=== PATIENT | female | born 1965 | race Caucasian/White ===

== ENCOUNTER 2024-07-13 14:41 | Outpatient (AMB) | payer OTHER, SELFPAY ==
--- NOTE | 2024-07-13 14:56 | A.OFFPC_ITS ---
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 ?? Prior PCP:? No PCP in 5 yrs Last office visit/CPE:? 5 yrs Acute issue(s):? Est care ?? PMHx:? Hep C exposure and was treated. SurgHx:?None FHx:? Brother: Blood Clotting disorder. SocHx:? Came to [place] in 2000. Nonsmoker, EtOH None. No drugs HPI Comments History of Present Illness Details Documentation assistance for Luke Castillo MD, was provided by Rubio Webber,? Carpenter Helper Hardwood Flooring on 07/13/2024 at 3:53 PM EST. I, Dr. Castillo, have read, observed, and verified documentation. ?? PFSH Family History Brother Clotting disorder Social History Housing: House Patient Tobacco Use Status: Never used Tobacco e-Cigarette/Vaping Use: Never Used Second Hand Smoke Exposure: No service: No Current occupational status: unemployed Current occupational exposures/hazards: No Cognitive needs: No Hearing needs: No Vision needs: Yes Questionnaire PHQ-9 Over the last 2 weeks, how often have you been bothered by any of the following problems? 1. Little interest or pleasure in doing things: not at all 2. Feeling down, depressed, or hopeless: not at all 3. Trouble falling or staying asleep, or sleeping too much: not at all 4. Feeling tired or having little energy: not at all 5. Poor appetite or overeating: not at all 6. Feeling bad about yourself - or that you are a failure or have let yourself or your family down: not at all 7. Trouble concentrating on things, such as reading the newspaper or watching television: not at all 8. Moving or speaking so slowly that other people could have noticed. Or the opposite - being so fidgety or restless that you have been moving around a lot more than usual: not at all 9. Thoughts that you would be better off or of hurting yourself in some way: not at all Total score: 0 Depression Screening Interpretation: Negative Depression Screening Done: Yes 42582 - PHQ-9 Billing: Yes Source: Developed by Drs. Santy Lyles, Lupe Champion, Michael Gallegos and colleagues, with an educational katy from [employer]. Thrive Questionnaire Date Thrive assessed: 07/13/24 I am a: Patient What is your living situation today?: I have a steady place to live Within the past 12 months, did the food you bought not last and you didn't have the money to get more?: Never true Within the past 12 months, did you worry whether your food would run out before you got money to buy more?: Never true Do you have trouble paying for medicines?: No Do you have trouble getting transportation to medical appointments?: No Do you have trouble paying your heating and electricity bill?: No Do you have trouble taking care of your child, family member or friend?: No Do you have trouble with day-to-day activities such as bathing, preparing meals, shopping, managing finances, etc.?: No Are you currently unemployed and looking for a job?: No Are you interested in more education?: I choose not to answer this question Please select the resources that you would like help with: None Currently or been in a relationship where the following occur: I choose not to answer THRIVE Score: 0 AUDIT C Alcohol Use Questionnaire (AUDIT-C) 1. How often do you have a drink containing alcohol?: Never 3. How often do you have six or more drinks on one occasion?: Never Total Score: 0 Score Reviewed/Action Taken: Yes JUDY-7 AMB Questionnaire JUDY-7 Date JUDY - 7 assessed: 07/13/24 Feeling nervous, anxious, or on edge: 0 = Not at all Not being able to stop or control worryin = Not at all Worrying too much about different things: 0 = Not at all Trouble relaxin = Not at all Being so restless that it is hard to sit still: 0 = Not at all Becoming easily annoyed or irritable: 0 = Not at all Feeling afraid as if something awful might happen: 0 = Not at all Total JUDY-7 score (0-4 normal; 5-9 mild; 10-14 moderate; 15-21 severe): 0 Source: Developed by Drs. Santy Lyles, Lupe Champion, Michael Gallegos and colleagues, with an educational katy from [employer]. JUDY-7 Assessment Billing JUDY-7 Assessment Tool: JUDY-7 Assessment 98590 Review of Systems Const Denies chills, Denies fatigue, Denies fever(s), Denies headache(s) and Denies weakness ENT Denies dizziness and Denies headache(s) Card Denies chest pain, Denies lightheadedness, Denies dyspnea and Denies other (Palpitations) Resp Denies cough, Denies dyspnea, Denies wheezing and Denies other ( shortness of breath) Musc Denies numbness and Denies tingling Neuro Denies dizziness, Denies headache(s), Denies numbness, Denies tingling, Denies paresthesias and Denies weakness Psych Denies anxiety and Denies depression Endo Denies fatigue Aller/Immun Denies wheezing Physical exam (Primary Care) Vital Signs: Last Vital Signs Temp 97.7 F 07/13/24 14:59 Pulse 83 07/13/24 14:59 Resp 4 L 07/13/24 14:59 BP 120/80 07/13/24 14:59 Pulse Ox 99 07/13/24 14:59 Oxygen Delivery Method Room Air 07/13/24 14:59 BMI result Body Mass Index 31.6 Tobacco/Smoking Status: Tobacco use Status Tobacco use date assessed 07/13/24 07/13/24 15:08 Patient Tobacco Use Status Never used Tobacco 07/13/24 15:08 e-Cigarette/Vaping Use Never Used 07/13/24 15:08 PHQ-9: PHQ-9 Score PHQ-9: Total score 0 07/13/24 15:41 Depression Screening Interpretation: Negative Thrive Assessment: Date of Thrive Assessment Date Thrive assessed 07/13/24 07/13/24 15:08 Currently or been in a relationship where the following occur: I choose not to answer Const General: no acute distress and well developed Nutritional Appearance: well nourished Orientation/consciousness: patient oriented x3 HENMT Head: Yes normocephalic and Yes atraumatic Eyes General: appearance normal, both eyes and all related structures Pupils: Equal, round and reactive pupils present EOM: EOMs intact bilaterally Resp Effort & Inspection: normal respiratory effort Auscultation: clear to auscultation bilaterally Cardio Rate: regular rate Rhythm: regular rhythm Heart sounds: S1 normal heart sound present, S2 normal heart sound present, no gallops, no murmurs and no rubs Neuro General: patient oriented x3 and gait normal Cranial nerves: Yes Equal, round and reactive pupils present Psych Affect: normal affect Coding Level of Care Code New Pt Level 3 (94679) Diagnoses Exposure to hepatitis C Z20.5 Raynauds phenomenon I73.00 Breast cancer screening by mammogram Z12.31 Screening for colon cancer Z12.11 Screening for cervical cancer Z12.4 Laboratory exam ordered as part of routine general medical examination Z00.00 Additional Codes JUDY-7 Assessment Billing - JUDY-7 Assessment Tool: JUDY-7 Assessment 36767 ([id number]) PHQ-9 - 17207 - PHQ-9 Billing: Yes ([id number]) Assessment & Plan Assessment & Plan (1) Exposure to hepatitis C: Code(s): Z20.5 - Contact with and (suspected) exposure to viral hepatitis Category: Medical Plan: Patient?describes?history?hep?C?exposure?and?infection?with?ribavirin?and?interf tasia?treatment?in?2000 Patient?says?she?has?had?numerous?a?testing?since?then?showing?no?viral?load. Checking?this?again?with?her?initial?labs. (2) Raynauds phenomenon: Code(s): I73.00 - Raynaud's syndrome without gangrene Category: Medical Plan: Mild?Raynaud's?phenomenon Keep?hands?and?feet?warm (3) Breast cancer screening by mammogram: Code(s): Z12.31 - Encounter for screening mammogram for malignant neoplasm of breast Category: Medical Plan: Mammogram?ordered (4) Screening for colon cancer: Code(s): Z12.11 - Encounter for screening for malignant neoplasm of colon Category: Medical Plan: Refer?to?Gastroenterology (5) Screening for cervical cancer: Code(s): Z12.4 - Encounter for screening for malignant neoplasm of cervix Category: Medical Plan: Referred?to obstetrics gyn (6) Laboratory exam ordered as part of routine general medical examination: Code(s): Z00.00 - Encounter for general adult medical examination without abnormal findings Category: Medical Plan: Check?labs Orders: Orders Comprehensive [place]. Panel Fast Today Z00.00 - Encounter for general adult medical examination without abnormal findings Complete Blood Count Auto Diff Today Z00.00 - Encounter for general adult medical examination without abnormal findings Lipid Panel Today Z00.00 - Encounter for general adult medical examination without abnormal findings T Spot TB Today Z11.1 - Encounter for screening for respiratory tuberculosis TSH reflex Free T4 Today Z00.00 - Encounter for general adult medical examination without abnormal findings UA and rflx microscopic Today Z00.00 - Encounter for general adult medical examination without abnormal findings Hepatitis C Viral Load Today Z20.5 - Contact with and (suspected) exposure to viral hepatitis Hepatitis B,C Profile Today Z11.3 - Encounter for screening for infections with a predominantly sexual mode of transmission Microalbumin, Random (w Creat) Today I10 - Essential (primary) hypertension MM tomosynthesis screening BI Today Z12.31 - Encounter for screening mammogram for malignant neoplasm of breast Referrals PLANT PRODUCTION MANAGER Referral Z12.4 - Encounter for screening for malignant neoplasm of cervix Gastroenterology Referral Z12.11 - Encounter for screening for malignant neoplasm of colon
[2024-07-13 14:59] VITALS: BP 120/80; PULSE 83; RESP 4; TEMP 36.5; O2SAT 99; BMI 31.6
== END 2024-07-13 17:08 | disposition home or self-care (01) ==
LOC: HO.HMCFM 14:42
PROVIDERS: PCP Family Medicine; Visit Provider Family Medicine
DX: Z20.5 Contact with and (suspected) exposure to viral hepatitis (principal); I73.00 Raynaud's syndrome without gangrene; Z12.31 Encounter for screening mammogram for malignant neoplasm of breast; Z12.11 Encounter for screening for malignant neoplasm of colon; Z12.4 Encounter for screening for malignant neoplasm of cervix; Z00.00 Encounter for general adult medical examination without abnormal findings

== ENCOUNTER → 2024-07-13 14:41 | Outpatient (BNVA) | payer OTHER, SELFPAY | PROVIDERS: PCP Family Medicine; Visit Provider Family Medicine ==

== ENCOUNTER 2024-07-13 15:59 | Outpatient (REF) | payer OTHER, SELFPAY ==
[2024-07-13 18:06] LABS: MANUAL DIFF FLAG NO
[2024-07-13 18:26] LABS: Basophils Percent Auto 0.7 % (0-2); Eosinophils Absolute Auto 0.1 X10*3/uL (0.0-0.4); Eosinophils Percent Auto 2.6 % (0-4); Hematocrit 39.6 % (37.0-47.0); Hemoglobin 13.1 g/dl (12.0-16.0); Imm Gran Abs Auto 0.01 X10*3/uL (0.00-0.03); Imm Gran Pct Auto 0.2 % (0.0-0.4); Lymphocytes Absolute Auto 1.4 X10*3/uL (1.2-4.9); Lymphocytes Percent Auto 31.8 % (20-40); Mean Corpuscular HGB Conc 33.1 g/dl (31.0-35.0); Mean Corpuscular Volume 87.6 fL (80.0-98.0); Mean Platelet Volume 12.3 fL (9.4-12.3); Monocytes Absolute Auto 0.4 X10*3/uL (0.1-1.2); Monocytes Percent Auto 9.5 % (2-11); Neutrophils Absolute Auto 2.4 x10*3/uL (2.0-8.3); Neutrophils Percent Auto 55.2 % (45-73); Platelet Count 159 X10*3/uL (160-400); Red Blood Count 4.52 X10*6/uL (4.20-5.50); Red Cell Distribution Width 13.5 % (11.0-16.0); White Blood Count 4.3 X10*3/uL (4.8-10.8)
[2024-07-13 18:34] LABS: Appearance Urine Clear; Color Urine Yellow; Glucose Urine UA Negative (Negative); Leukocyte Esterase Urine Negative (Negative); Nitrite Urine Negative (Negative); PH 5.5 (5.0-9.0); Urine Blood Negative (Negative); Urine Ketones Negative (Negative); Urine Protein Negative (Neg-Trace)
[2024-07-13 18:58] LABS: Creatinine Urine 155.51 mg/dL; Microalbum/Creatinine Ratio Ur 5.1 ug/mg cr (<30)
[2024-07-13 19:05] LABS: Alanine Aminotransferase 25 U/L (0-31); Albumin Level 4.5 g/dL (3.5-5.0); Alkaline Phosphatase 66 U/L (39-117); Anion Gap 10 (12-20); Aspartate Amino Transferase 21 U/L (5-31); Bilirubin Total 0.6 mg/dL (0.0-1.0); Blood Urea Nitrogen 12 mg/dL (9-16); Calcium 9.8 mg/dL (8.4-10.2); Carbon Dioxide 26 mmol/L (22-29); Chloride 109 mmol/L (96-108); Cholesterol 238 mg/dL (<200); Estimated Glomerular Filt Rate > 60; Glucose Fasting 89 mg/dL (60-99); HDL Cholesterol 65 mg/dL (>40); LDL Cholesterol Calculated 160 mg/dL (<100); Potassium 4.4 mmol/L (3.3-5.1); Sodium 141 mmol/L (135-145); Total Protein 8.7 g/dL (6.5-8.0); Triglycerides 66 mg/dL (<150)
[2024-07-13 19:20] LABS: TSH reflex Free T4 1.06 uIU/mL (0.32-4.0)
[2024-07-14 04:22] LABS: HBS Num1 0.92 mIU/mL (0-7.99); HBc Num1 0.05 S/CO (0.00-0.79); HBsAGNum1 0.24 S/CO (0.00-0.99); Hepatitis B Core Antibody Nonreactive (Nonreactive); Hepatitis B Surface Antigen Negative (Negative); ~HepC Num1 4.13 S/CO (0.00-0.79); ~Hepatitis B Surface Antibody NONREACTIVE (Nonreactive); ~Hepatitis C Antibody Reactive (Nonreactive)
[2024-07-14 17:14] LABS: HCV Log PCR <1.18 NOT DETECTED Log IU/mL (NOT DETECTED); HepC Viral Load <15 NOT DETECTED IU/mL (NOT DETECTED)
[2024-07-15 21:19] LABS: TS Negative Control Passed; TS Panel A 0; TS Panel B 0; TS Positive Control Passed; TSpotTB Negative (Negative)
== END 2024-07-13 16:00 | disposition home or self-care (01) ==
LOC: HO.WFDLDS 15:59
PROVIDERS: Visit Provider Family Medicine
DX: I10 Essential (primary) hypertension (principal); I73.00 Raynaud's syndrome without gangrene; Z20.5 Contact with and (suspected) exposure to viral hepatitis; Z11.1 Encounter for screening for respiratory tuberculosis; Z11.3 Encounter for screening for infections with a predominantly sexual mode of transmission; Z00.00 Encounter for general adult medical examination without abnormal findings
CPT/HCPCS: 36415; 80053; 80061; 81003; 82043; 82570; 84443; 85025; 86481; 86704; 86706; 86803; 87340; 87522; 96127

== ENCOUNTER 2024-08-30 09:31 | Outpatient (AMB) | payer OTHER, SELFPAY ==
--- NOTE | 2024-08-30 09:40 | MHC.PC.OV ---
Vital Signs 08/30/24 09:42 Height 5 ft 1.42 in Weight 167 lb 6 oz BMI 31.2 BP 120/64 Blood Pressure Location Lt brachial Position Sitting Respiration 16 Pulse 84 Pulse Source Pulse Oximeter Temp 97.8 F Temp Source Oral Pulse Oximetry (%) 97 Oxygen Delivery Method Room Air Intake Visit Reasons: lab work follow up Allergies No Known Allergies Allergy (Verified 07/13/24 15:03) Medication List - Last Reconciled 08/30/24 by Luke Castillo MD No Known Home Meds Tobacco use date assessed: 07/13/24 Dental Screening Dental Screen Date: 07/13/24 HPI lab work follow up HPI Details 58 y/o female presents to f/u labs. Labs drawn 07/13/24. Reviewed labs with pt. Exposure to Hep C. Triglycerides 66. TC 238. LDL 160. HDL 65. HPI Comments History of Present Illness Details Documentation assistance for Luke Castillo MD, was provided by Rubio Webber,? Graphic User Interface Designer on 08/30/2024 at 10:07 AM PADMINI. I, Dr. Castillo, have read, observed, and verified documentation. ?? PFSH Family History Brother Clotting disorder Social History Housing: House Patient Tobacco Use Status: Never used Tobacco e-Cigarette/Vaping Use: Never Used Second Hand Smoke Exposure: No service: No Current occupational status: unemployed Current occupational exposures/hazards: No Cognitive needs: No Hearing needs: No Vision needs: Yes Questionnaire Thrive Questionnaire Date Thrive assessed: 07/10/24 I am a: Patient What is your living situation today?: I have a steady place to live Within the past 12 months, did the food you bought not last and you didn't have the money to get more?: Never true Within the past 12 months, did you worry whether your food would run out before you got money to buy more?: Never true Do you have trouble paying for medicines?: No Do you have trouble getting transportation to medical appointments?: No Do you have trouble paying your heating and electricity bill?: No Do you have trouble taking care of your child, family member or friend?: No Do you have trouble with day-to-day activities such as bathing, preparing meals, shopping, managing finances, etc.?: No Are you currently unemployed and looking for a job?: No Are you interested in more education?: I choose not to answer this question Please select the resources that you would like help with: None Currently or been in a relationship where the following occur: I choose not to answer THRIVE Score: 0 JUDY-7 AMB Questionnaire JUDY-7 Date JUDY - 7 assessed: 07/13/24 Source: Developed by Drs. Santy Lyles, Lupe Champion, Michael Gallegos and colleagues, with an educational katy from [employer]. Review of Systems Const Denies chills, Denies fatigue, Denies fever(s), Denies headache(s) and Denies weakness ENT Denies dizziness and Denies headache(s) Card Denies dyspnea Resp Denies cough, Denies dyspnea, Denies wheezing and Denies other (shortness of breath) Musc Denies numbness and Denies tingling Neuro Denies dizziness, Denies headache(s), Denies numbness, Denies tingling and Denies weakness Psych Denies anxiety and Denies depression Endo Denies fatigue Aller/Immun Denies wheezing Physical exam (Primary Care) Vital Signs: Last Vital Signs Temp 97.8 F 08/30/24 09:42 Pulse 84 08/30/24 09:42 Resp 16 08/30/24 09:42 BP 120/64 08/30/24 09:42 Pulse Ox 97 08/30/24 09:42 Oxygen Delivery Method Room Air 08/30/24 09:42 BMI result Body Mass Index 31.2 Tobacco/Smoking Status: Tobacco use Status Tobacco use date assessed 07/13/24 08/30/24 09:41 Patient Tobacco Use Status Never used Tobacco 08/30/24 09:41 e-Cigarette/Vaping Use Never Used 08/30/24 09:41 Thrive Assessment: Date of Thrive Assessment Date Thrive assessed 07/10/24 08/30/24 09:41 Currently or been in a relationship where the following occur: I choose not to answer Const General: well developed; No acute distress Nutritional Appearance: well nourished Orientation/consciousness: patient oriented x3 HENMT Head: Yes normocephalic and Yes atraumatic Eyes General: appearance normal, both eyes and all related structures Pupils: Equal, round and reactive pupils present EOM: EOMs intact bilaterally Resp Effort & Inspection: normal respiratory effort Auscultation: clear to auscultation bilaterally Cardio Rate: regular rate Rhythm: regular rhythm Heart sounds: S1 normal heart sound present, S2 normal heart sound present, no gallops, no murmurs and no rubs Neuro General: patient oriented x3 and gait normal Cranial nerves: Yes Equal, round and reactive pupils present Psych Affect: normal affect Coding Level of Care Code Est Pt Level 3 (89073) Diagnoses Exposure to hepatitis C Z20.5 Hyperlipidemia E78.5 Assessment & Plan Assessment & Plan (1) Exposure to hepatitis C: Code(s): Z20.5 - Contact with and (suspected) exposure to viral hepatitis Category: Medical Plan: History?of?hepatitis?C?infection?and?treatment. Positive?antibodies?but?viral?load?is?0?as?she?has?said?it?has?been?in?the?past. Liver?enzymes?are?normal No?need?for?further?follow-up. (2) Hyperlipidemia: Code(s): E78.5 - Hyperlipidemia, unspecified Category: Medical Plan: LDL?cholesterol?is?too?high. Advised?diet?low?in?saturated?fats?and?cholesterol,?exercise?and?some?weight?loss Will?recheck?lipids?prior?to?her?next?visit?and?we?can?review?together. We?discussed?if?her?lipids?are?still?significantly?elevated?we?should?consider?medication. Orders: Orders Lipid Panel Today E78.5 - Hyperlipidemia, unspecified, Z00.00 - Encounter for general adult medical examination without abnormal findings Comprehensive [place]. Panel Fast Today E78.5 - Hyperlipidemia, unspecified, Z00.00 - Encounter for general adult medical examination without abnormal findings
[2024-08-30 09:42] VITALS: BP 120/64; PULSE 84; RESP 16; TEMP 36.6; O2SAT 97; BMI 31.2
== END 2024-08-30 10:11 | disposition home or self-care (01) ==
LOC: HO.HMCFM 09:32
PROVIDERS: PCP Family Medicine; Visit Provider Family Medicine
DX: Z20.5 Contact with and (suspected) exposure to viral hepatitis (principal); E78.5 Hyperlipidemia, unspecified

== ENCOUNTER → 2024-08-30 09:31 | Outpatient (BNVA) | payer OTHER, SELFPAY | PROVIDERS: PCP Family Medicine; Visit Provider Family Medicine | DX: Z13.89 Encounter for screening for other disorder (principal) ==

== ENCOUNTER 2024-09-03 09:57 | Outpatient (REF) | payer OTHER, SELFPAY | END 2024-09-03 09:58 | disposition home or self-care (01) | LOC: HO.MAMMO 09:57 | PROVIDERS: PCP Family Medicine; Visit Provider Family Medicine | DX: Z12.31 Encounter for screening mammogram for malignant neoplasm of breast (principal) | CPT/HCPCS: 77063; 77067 ==

== ENCOUNTER → 2024-09-03 10:00 | Outpatient (BNV) | payer OTHER, SELFPAY | PROVIDERS: PCP Family Medicine; Visit Provider Internal Medicine | DX: Z12.31 Encounter for screening mammogram for malignant neoplasm of breast (principal) | CPT/HCPCS: 77063; 77067 ==

== ENCOUNTER 2024-09-29 08:32 | Outpatient (AMB) | payer OTHER, SELFPAY ==
--- NOTE | 2024-09-29 08:35 | A.OFFVIS_ITS ---
Vital Signs 09/29/24 08:37 Height 5 ft 1.42 in Weight 165 lb 5.547 oz BMI 30.8 BP 133/60 Blood Pressure Location Lt brachial Position Sitting Pulse 66 Intake Visit Reasons: colo screen Intake Note: Joanna presents in the office as a colonoscopy screening. CC: Quilt Maker Required: No Allergies No Known Allergies Allergy (Verified 09/29/24 08:40) Medication List - Last Reconciled 09/29/24 by Keisha Crockett CNP bisacodyl 5 mg PO ONCE 1 day polyethylene glycol 3350 (Miralax) 238 grams PO ONCE HPI HPI colo screen: Details: Patient is a 59-year-old female with PMH of hyperlipidemia. Referred by PCP for pre colonoscopy screening. The patient is here for a pre-colonoscopy screening . They report having acid reflux infrequently, typically when consuming heavy meals. The symptoms are not chronic and seem to align with dietary choices. For symptomatic relief, they usually consume carbonated beverages like 7up. She mentions having external hemorrhoids which cause no pain and are only managed with maintaining a proper diet to prevent constipation, which they experienced severely between [id number] but resolved without interventions. Patient denies: fever/chills, n/v, appetite changes, regurgitation,dysphasia, unintentional wt loss, ab pain or melena/hematochezia. Social History - Diet: Currently working on weight loss as recommended by PCP; no specific diet mentioned. - Alcohol/Tobacco/Drug Use: Denies any alcohol, tobacco, or recreational drug use. - family hx as below -denies personal hx of CA - denies significant cardiopulmonary history -no previous procedural history that required sedation/anesthesia. [facility] Medical History (Updated 09/29/24 @ 09:19 by Keisha Crockett CNP) External hemorrhoids Family History Brother Clotting disorder Social History Housing: House Patient Tobacco Use Status: Never used Tobacco e-Cigarette/Vaping Use: Never Used Second Hand Smoke Exposure: No service: No Current occupational status: unemployed Current occupational exposures/hazards: No Cognitive needs: No Hearing needs: No Vision needs: Yes Review of Systems Const Reports as per HPI ENT Reports as per HPI Card Reports as per HPI Resp Reports as per HPI GI Reports as per [facility] Reports as per HPI Physical Exam Vital Signs: Last Vital Signs Pulse 66 09/29/24 08:37 BP 133/60 09/29/24 08:37 BMI result Body Mass Index 30.8 Const General: healthy appearing, no acute distress and well developed Nutritional Appearance: well nourished Orientation/consciousness: patient oriented x3 HEENT Head: Yes normal to inspection, Yes normocephalic and Yes atraumatic Face and sinus: Yes normal facial exam Eyes General: appearance normal, both eyes and all related structures Neck Neck: Yes normal visual inspection Resp Effort & Inspection: normal respiratory effort, able to speak in complete sentences, no tracheal deviation and symmetric chest movement Auscultation: clear to auscultation bilaterally Cardio Jugular venous distension: no JVD Rate: regular rate Rhythm: regular rhythm Heart sounds: S1 normal heart sound present, S2 normal heart sound present, no gallops and no murmurs GI Inspection: Yes normal to inspection and No distended Palpation (GI): Soft to palpation, not firm, nontender and No hepatosplenomegaly present Auscultation: normal bowel sounds Neuro General: patient oriented x3 Gait exam (Neuro): Normal gait present Psych Appearance: grossly normal Mental Status: mental status grossly normal Speech and movement: Normal speech and movement present Affect: normal affect Attitude: cooperative Thought process: Normal thought process present Thought content: Normal thought content present Insight: Good insight present (Psych) Judgement: Good judgement present (Psych) Assessment & Plan Assessment & Plan (1) Screening for colon cancer: Code(s): Z12.11 - Encounter for screening for malignant neoplasm of colon Category: Medical Plan: Index screening colonoscopy. Diagnostic Tests: Prescriptions for laxative tablets and Miralax sent to pharmacy; instructions for Gatorade purchase and clear liquid diet given. Patient educated on procedure preparation, including avoiding certain foods and ensuring clear liquid intake. Advised on necessity for ride post-procedure due to sedation. (2) External hemorrhoids: Code(s): K64.4 - Residual hemorrhoidal skin tags Category: Medical Plan: Asymptomatic external hemorrhoids, no current pain/itching. Medications: Steroid ointment offered if sx develop (pain, itching, swelling); pt declined for now. Educated that the goal for prevention is to avoid/prevent constipation. Reinforced lifestyle modifications to promote regularity: -higher fiber diet, examples provided -adequate hydration with water -150 minutes of moderate intensity exercise per week Plan follow up as needed after colonoscopy. TIme: I spent a total of 30 minutes on the date of encounter which includes: Preparing to see the patient (reviewed previous documentation, test results and medical history) Performing a medically appropriate exam and/or evaluation Ordering medications, tests, and procedures Documenting clinical information in the health record Medications: New polyethylene glycol 3350 (Miralax) per colonoscopy prep instructions 238 grams PO ONCE 238 grams 0RF bisacodyl Take four tablets once for 1 day per colonoscopy instructions 5 mg PO ONCE 1 day 4 tabs 0RF Coding Level of Care Code New Pt New Pt Level 3 (29053) Patient Type New Diagnoses Screening for colon cancer Z12.11 External hemorrhoids K64.4
[2024-09-29 08:37] VITALS: BP 133/60; PULSE 66; BMI 30.8
== END 2024-09-29 09:03 | disposition home or self-care (01) ==
LOC: HO.HGI 08:33
PROVIDERS: PCP Family Medicine; Visit Provider Nurse Practitioner Family
DX: Z01.818 Encounter for other preprocedural examination (principal); Z12.11 Encounter for screening for malignant neoplasm of colon; K64.4 Residual hemorrhoidal skin tags
CPT/HCPCS: S0285

== ENCOUNTER 2024-10-04 07:40 | Outpatient (REF) | payer OTHER, SELFPAY ==
[2024-10-04 12:41] LABS: Alanine Aminotransferase 20 U/L (0-31); Albumin Level 4.5 g/dL (3.5-5.0); Alkaline Phosphatase 60 U/L (39-117); Anion Gap 10 (12-20); Aspartate Amino Transferase 22 U/L (5-31); Bilirubin Total 1.1 mg/dL (0.0-1.0); Blood Urea Nitrogen 8 mg/dL (9-16); Calcium 9.7 mg/dL (8.4-10.2); Carbon Dioxide 29 mmol/L (22-29); Chloride 106 mmol/L (96-108); Cholesterol 268 mg/dL (<200); Estimated Glomerular Filt Rate > 60; Glucose Fasting 93 mg/dL (60-99); HDL Cholesterol 54 mg/dL (>40); LDL Cholesterol Calculated 197 mg/dL (<100); Potassium 4.1 mmol/L (3.3-5.1); Sodium 141 mmol/L (135-145); Triglycerides 89 mg/dL (<150)
== END 2024-10-04 07:41 | disposition home or self-care (01) ==
LOC: HO.WFDLDS 07:40
PROVIDERS: Visit Provider Family Medicine
DX: Z00.00 Encounter for general adult medical examination without abnormal findings (principal); E78.5 Hyperlipidemia, unspecified
CPT/HCPCS: 36415; 80053; 80061

== ENCOUNTER 2024-10-04 11:54 | Outpatient (AMB) | payer OTHER, SELFPAY ==
--- NOTE | 2024-10-04 12:36 | MHC.PC.OV ---
Vital Signs 10/04/24 12:41 Height 5 ft 1.42 in Weight 169 lb BMI 31.5 BP 130/88 Blood Pressure Location Rt brachial Position Sitting Respiration 14 Pulse 79 Pulse Source Pulse Oximeter Pulse Oximetry (%) 98 Oxygen Delivery Method Room Air Intake Visit Reasons: Physical (Keep appt.) Intake Note: patient is scheduled for cpe labs were done this morning results are pending Bung Driver Required: No Allergies No Known Allergies Allergy (Verified 10/04/24 12:38) Tobacco use date assessed: 10/04/24 Dental Screening Dental Screen Date: 10/04/24 Did you have a dental visit in the last 12 months?: Yes Did you have a dental problem in the last 6 months where you did not have access to dental care?: No Was dental information given to patient?: Patient has dentist [facility] Medical History External hemorrhoids Family History Brother Clotting disorder Social History Housing: House Patient Tobacco Use Status: Never used Tobacco e-Cigarette/Vaping Use: Never Used Second Hand Smoke Exposure: No service: No Current occupational status: unemployed Current occupational exposures/hazards: No Cognitive needs: No Hearing needs: No Vision needs: Yes Questionnaire PHQ-9 Over the last 2 weeks, how often have you been bothered by any of the following problems? 1. Little interest or pleasure in doing things: not at all 2. Feeling down, depressed, or hopeless: not at all 3. Trouble falling or staying asleep, or sleeping too much: not at all 4. Feeling tired or having little energy: not at all 5. Poor appetite or overeating: not at all 6. Feeling bad about yourself - or that you are a failure or have let yourself or your family down: not at all 7. Trouble concentrating on things, such as reading the newspaper or watching television: not at all 8. Moving or speaking so slowly that other people could have noticed. Or the opposite - being so fidgety or restless that you have been moving around a lot more than usual: not at all 9. Thoughts that you would be better off or of hurting yourself in some way: not at all Total score: 0 Depression Screening Interpretation: Negative Depression Screening Done: Yes 68607 - PHQ-9 Billing: Yes Source: Developed by Drs. Santy Lyles, Lupe Champion, Michael Gallegos and colleagues, with an educational katy from [employer]. Thrive Questionnaire Date Thrive assessed: 07/10/24 I am a: Patient What is your living situation today?: I have a steady place to live Within the past 12 months, did the food you bought not last and you didn't have the money to get more?: Never true Within the past 12 months, did you worry whether your food would run out before you got money to buy more?: Never true Do you have trouble paying for medicines?: No Do you have trouble getting transportation to medical appointments?: No Do you have trouble paying your heating and electricity bill?: No Do you have trouble taking care of your child, family member or friend?: No Do you have trouble with day-to-day activities such as bathing, preparing meals, shopping, managing finances, etc.?: No Are you currently unemployed and looking for a job?: No Are you interested in more education?: I choose not to answer this question Please select the resources that you would like help with: None Currently or been in a relationship where the following occur: I choose not to answer THRIVE Score: 0 AUDIT C Alcohol Use Questionnaire (AUDIT-C) 1. How often do you have a drink containing alcohol?: Never 3. How often do you have six or more drinks on one occasion?: Never Total Score: 0 Score Reviewed/Action Taken: Yes JUDY-7 AMB Questionnaire JUDY-7 Date JUDY - 7 assessed: 10/04/24 Feeling nervous, anxious, or on edge: 0 = Not at all Not being able to stop or control worryin = Not at all Worrying too much about different things: 0 = Not at all Trouble relaxin = Not at all Being so restless that it is hard to sit still: 0 = Not at all Becoming easily annoyed or irritable: 0 = Not at all Feeling afraid as if something awful might happen: 0 = Not at all Total JUDY-7 score (0-4 normal; 5-9 mild; 10-14 moderate; 15-21 severe): 0 Source: Developed by Drs. Santy Lyles, Lupe Champion, Michael Gallegos and colleagues, with an educational katy from [employer]. JUDY-7 Assessment Billing JUDY-7 Assessment Tool: JUDY-7 Assessment 94728 Physical exam (Primary Care) Vital Signs: Last Vital Signs Pulse 79 10/04/24 12:41 Resp 14 10/04/24 12:41 BP 130/88 10/04/24 12:41 Pulse Ox 98 10/04/24 12:41 Oxygen Delivery Method Room Air 10/04/24 12:41 BMI result Body Mass Index 31.5 Tobacco/Smoking Status: Tobacco use Status Tobacco use date assessed 10/04/24 10/04/24 12:44 Patient Tobacco Use Status Never used Tobacco 10/04/24 12:37 e-Cigarette/Vaping Use Never Used 10/04/24 12:37 PHQ-9: PHQ-9 Score PHQ-9: Total score 0 10/04/24 12:44 Depression Screening Interpretation: Negative Thrive Assessment: Date of Thrive Assessment Date Thrive assessed 07/10/24 10/04/24 12:37 Currently or been in a relationship where the following occur: I choose not to answer Coding Additional Codes JUDY-7 Assessment Billing - JUDY-7 Assessment Tool: JUDY-7 Assessment [id number] ([id number]) PHQ-9 - 02624 - PHQ-9 Billing: Yes ([id number])
--- NOTE | 2024-10-04 12:36 | MHC.PC.OV ---
Vital Signs 10/04/24 12:41 Height 5 ft 1.42 in Weight 169 lb BMI 31.5 BP 130/88 Blood Pressure Location Rt brachial Position Sitting Respiration 14 Pulse 79 Pulse Source Pulse Oximeter Pulse Oximetry (%) 98 Oxygen Delivery Method Room Air Intake Visit Reasons: Physical (Keep appt.) Allergies No Known Allergies Allergy (Verified 10/04/24 12:38) Medication List - Last Reconciled 10/04/24 by Luke Castillo MD bisacodyl 5 mg PO ONCE 1 day polyethylene glycol 3350 (Miralax) 238 grams PO ONCE Tobacco use date assessed: 07/13/24 Dental Screening Dental Screen Date: 07/13/24 HPI Physical (Keep appt.) HPI Details 59 y/o female presents for a CPE with f/u labs and health maintenance. Labs drawn 10/04/24. Reviewed labs with pt. Triglycerides 89. TC 268. LDL 197. HDL 54. PFSH Medical History External hemorrhoids Family History Brother Clotting disorder Social History Housing: House Patient Tobacco Use Status: Never used Tobacco e-Cigarette/Vaping Use: Never Used Second Hand Smoke Exposure: No service: No Current occupational status: unemployed Current occupational exposures/hazards: No Cognitive needs: No Hearing needs: No Vision needs: Yes Questionnaire Thrive Questionnaire Date Thrive assessed: 07/10/24 I am a: Patient What is your living situation today?: I have a steady place to live Within the past 12 months, did the food you bought not last and you didn't have the money to get more?: Never true Within the past 12 months, did you worry whether your food would run out before you got money to buy more?: Never true Do you have trouble paying for medicines?: No Do you have trouble getting transportation to medical appointments?: No Do you have trouble paying your heating and electricity bill?: No Do you have trouble taking care of your child, family member or friend?: No Do you have trouble with day-to-day activities such as bathing, preparing meals, shopping, managing finances, etc.?: No Are you currently unemployed and looking for a job?: No Are you interested in more education?: I choose not to answer this question Please select the resources that you would like help with: None Currently or been in a relationship where the following occur: I choose not to answer THRIVE Score: 0 JUDY-7 AMB Questionnaire JUDY-7 Date JUDY - 7 assessed: 07/13/24 Source: Developed by Drs. Santy Lyles, Lupe Champion, Michael Gallegos and colleagues, with an educational katy from [employer]. Review of Systems Const Denies chills, Denies fatigue, Denies fever(s), Denies headache(s) and Denies weakness Eyes Denies change in vision ENT Denies dizziness, Denies headache(s), Denies hearing loss, Denies nasal congestion, Denies sinus pain, Denies sinus pressure and Denies sore throat Card Denies chest pain, Denies lightheadedness, Denies dyspnea and Denies other (palpitations) Resp Denies cough, Denies dyspnea and Denies wheezing GI Denies abdominal pain, Denies melena, Denies hematochezia, Denies change in bowel habits, Denies dyspepsia and Denies nausea Denies hematuria and Denies dysuria Musc Denies abnormal gait, Denies myalgias, Denies arthralgias, Denies numbness and Denies tingling Skin/Breast Denies rash, Denies unusual bruising and Denies wounds Neuro Denies abnormal gait, Denies dizziness, Denies headache(s), Denies memory loss, Denies numbness, Denies Sensory deficit (Neuro), Denies tingling and Denies weakness Psych Denies anxiety, Denies depression and Denies memory loss Endo Denies cold intolerance, Denies fatigue, Denies heat intolerance, Denies polydipsia and Denies polyuria Salo/Lymph Denies easy bleeding and Denies easy bruising Aller/Immun Denies wheezing Physical exam (Primary Care) Vital Signs: Last Vital Signs Pulse 79 10/04/24 12:41 Resp 14 10/04/24 12:41 BP 130/88 10/04/24 12:41 Pulse Ox 98 10/04/24 12:41 Oxygen Delivery Method Room Air 10/04/24 12:41 BMI result Body Mass Index 31.5 Tobacco/Smoking Status: Tobacco use Status Tobacco use date assessed 07/13/24 10/04/24 12:37 Patient Tobacco Use Status Never used Tobacco 10/04/24 12:37 e-Cigarette/Vaping Use Never Used 10/04/24 12:37 PHQ-9: PHQ-9 Score PHQ-9: Total score 0 10/04/24 12:44 Thrive Assessment: Date of Thrive Assessment Date Thrive assessed 07/10/24 10/04/24 12:37 Currently or been in a relationship where the following occur: I choose not to answer Const General: no acute distress, well developed, alert and awake Nutritional Appearance: well nourished Orientation/consciousness: patient oriented x3 HENMT Head: Yes normocephalic and Yes atraumatic Ears: hearing grossly normal bilaterally and TM's normal bilaterally General nose exam: Normal external nose present and Normal nares present Mouth: Normal oral and palatal mucosa present and moist mucous membranes Teeth and gingiva: dentition normal Throat: Yes posterior oropharynx normal Eyes General: appearance normal, both eyes and all related structures Pupils: Equal, round and reactive pupils present and Pupil accommodation reflex normal EOM: EOMs intact bilaterally Neck Neck: Yes normal visual inspection, Yes no lymphadenopathy and Yes trachea midline Thyroid: Thyroid normal Carotids: no bruits Lymphatic: no lymphadenopathy noted Chest Chest palpation & inspection: normal inspection of the chest Resp Effort & Inspection: normal respiratory effort Auscultation: clear to auscultation bilaterally Cardio Rate: regular rate Rhythm: regular rhythm Heart sounds: S1 normal heart sound present, S2 normal heart sound present, no gallops, no murmurs and no rubs Bruits: no abdominal aortic bruits and no carotid bruits GI Palpation (GI): No Abdominal aortic bruit present, Soft to palpation, nontender, No hepatosplenomegaly present and No Rebound tenderness present Auscultation: normal bowel sounds General: Yes no CVA tenderness Back/Spine/Pelvis Back: no CVA tenderness Cervical Spine: cervical ROM normal and No Cervical spine tenderness Thoracic/Lumbar Spine: thoraco-lumbar ROM normal, No pain with thoraco-lumbar ROM, No thoracic spinal tenderness and No lumbar spinal tenderness Skin Lesions: no lesions Rashes: no rashes Trauma: no lacerations or abrasions Wounds: no wounds Nails: normal Neuro General: patient oriented x3 Cranial nerves: Yes Equal, round and reactive pupils present Cognition (Neuro): normal cognition Gait exam (Neuro): Normal gait present Motor exam (neuro): 5/5 motor strength present throughout Sensory Exam: No Sensory deficit (Neuro) Deep tendon reflexes (DTR's): Right patellar reflex intensity grade: 2+ and Left patellar reflex intensity grade: 2+ Extrem General: Yes normal to inspection and No edema Psych Appearance: grossly normal Affect: normal affect Attitude: cooperative Thought process: Normal thought process present Coding Level of Care Code Est Pt Level 3 (36120) Est Pt Prev Care 40-64y(43612) Diagnoses Adult general medical exam Z00.00 Hyperlipidemia E78.5 Screening for cervical cancer Z12.4 Screening for colon cancer Z12.11 Breast cancer screening by mammogram Z12. Assessment & Plan Assessment & Plan (1) Adult general medical exam: Code(s): Z00.00 - Encounter for general adult medical examination without abnormal findings Category: Medical Plan: 59-year-old?female?presents?for?complete?physical?exam Encouraged?healthy?diet?with?active?lifestyle?and?plenty?of?exercise (2) Hyperlipidemia: Code(s): E78.5 - Hyperlipidemia, unspecified Category: Medical Plan: Patient?has?very?high?LDL?cholesterol Advised?medication?but?she?wants?to?continue?to?work?at?lifestyle?changes. Encouraged?a?diet?low?in?saturated?fats?and?cholesterol Encouraged?exercise?and?weight?loss She?will?return?in?a?few?months?to?follow-up?on?lipids.??We?discussed?that?if?she?is?not?able?to?bring?lipids?down?considerably,?we?should?medication. Patient?understands (3) Screening for cervical cancer: Code(s): Z12.4 - Encounter for screening for malignant neoplasm of cervix Category: Medical Plan: She?has?an?upcoming?appointment?with?[facility]?gynecology (4) Screening for colon cancer: Code(s): Z12.11 - Encounter for screening for malignant neoplasm of colon Category: Medical Plan: Patient?had?an?appointment?with?Gastroenterology. They?will?schedule?a?colonoscopy (5) Breast cancer screening by mammogram: Code(s): Z12.31 - Encounter for screening mammogram for malignant neoplasm of breast Category: Medical Plan: Mammogram?showed?no?evidence?of?malignancy Will?continue?annual?screening Orders: Orders Lipid Panel Today E78.5 - Hyperlipidemia, unspecified, Z00.00 - Encounter for general adult medical examination without abnormal findings Comprehensive [place]. Panel Fast Today E78.5 - Hyperlipidemia, unspecified, Z00.00 - Encounter for general adult medical examination without abnormal findings
[2024-10-04 12:41] VITALS: BP 130/88; PULSE 79; RESP 14; O2SAT 98; BMI 31.5
== END 2024-10-04 13:44 | disposition home or self-care (01) ==
LOC: HO.HMCFM 11:55
PROVIDERS: PCP Family Medicine; Visit Provider Family Medicine
DX: Z00.00 Encounter for general adult medical examination without abnormal findings (principal); E78.5 Hyperlipidemia, unspecified; Z12.11 Encounter for screening for malignant neoplasm of colon; Z12.31 Encounter for screening mammogram for malignant neoplasm of breast

== ENCOUNTER 2024-12-29 09:30 | Outpatient (REF) | payer OTHER, SELFPAY ==
[2024-12-29 12:14] LABS: Alanine Aminotransferase 24 U/L (0-31); Albumin Level 4.4 g/dL (3.5-5.0); Alkaline Phosphatase 57 U/L (39-117); Anion Gap 12 (12-20); Aspartate Amino Transferase 23 U/L (5-31); Blood Urea Nitrogen 8 mg/dL (9-16); Calcium 9.3 mg/dL (8.4-10.2); Carbon Dioxide 27 mmol/L (22-29); Chloride 106 mmol/L (96-108); Cholesterol 258 mg/dL (<200); Estimated Glomerular Filt Rate > 60; HDL Cholesterol 52 mg/dL (>40); Potassium 4.8 mmol/L (3.3-5.1); Sodium 140 mmol/L (135-145); Total Protein 7.9 g/dL (6.5-8.0); Triglycerides 106 mg/dL (<150)
== END 2024-12-29 09:31 | disposition home or self-care (01) ==
LOC: HO.WFDLDS 09:30
PROVIDERS: Visit Provider Family Medicine
DX: Z00.00 Encounter for general adult medical examination without abnormal findings (principal); E78.5 Hyperlipidemia, unspecified
CPT/HCPCS: 36415; 80053; 80061

== ENCOUNTER 2025-01-03 10:27 | Outpatient (AMB) | payer OTHER, SELFPAY ==
--- NOTE | 2025-01-03 10:35 | MHC.PC.OV ---
Vital Signs 01/03/25 10:40 Height 5 ft 1.42 in Weight 167 lb 4 oz BMI 31.2 BP 122/70 Blood Pressure Location Rt brachial Position Sitting Respiration 12 Pulse 62 Pulse Source Pulse Oximeter Temp 97.1 F Temp Source Oral Pulse Oximetry (%) 99 Oxygen Delivery Method Room Air Intake Visit Reasons: f/u HLD Intake Note: Follow up hld. Air Hoist Operator Required: No Allergies No Known Allergies Allergy (Verified 01/03/25 10:35) Medication List - Last Reconciled 01/03/25 by Luke Castillo MD bisacodyl 5 mg PO ONCE 1 day polyethylene glycol 3350 (Miralax) 238 grams PO ONCE Tobacco use date assessed: 01/03/25 Dental Screening Dental Screen Date: 01/03/25 Did you have a dental visit in the last 12 months?: Yes Did you have a dental problem in the last 6 months where you did not have access to dental care?: No Was dental information given to patient?: Patient has dentist HPI f/u HLD HPI Details 59 y/o female presents to f/u HLD. Labs drawn 12/29/24. Reviewed labs with pt. Triglycerides 106. TC 258. LDL 185. HDL 52. PFSH Medical History External hemorrhoids Family History Brother Clotting disorder Social History Housing: House Patient Tobacco Use Status: Never used Tobacco e-Cigarette/Vaping Use: Never Used Second Hand Smoke Exposure: No service: No Current occupational status: unemployed Current occupational exposures/hazards: No Cognitive needs: No Hearing needs: No Vision needs: Yes Questionnaire Thrive Questionnaire Date Thrive assessed: 07/10/24 I am a: Patient What is your living situation today?: I have a steady place to live Within the past 12 months, did the food you bought not last and you didn't have the money to get more?: Never true Within the past 12 months, did you worry whether your food would run out before you got money to buy more?: Never true Do you have trouble paying for medicines?: No Do you have trouble getting transportation to medical appointments?: No Do you have trouble paying your heating and electricity bill?: No Do you have trouble taking care of your child, family member or friend?: No Do you have trouble with day-to-day activities such as bathing, preparing meals, shopping, managing finances, etc.?: No Are you currently unemployed and looking for a job?: No Are you interested in more education?: I choose not to answer this question Please select the resources that you would like help with: None Currently or been in a relationship where the following occur: I choose not to answer THRIVE Score: 0 JUDY-7 AMB Questionnaire JUDY-7 Date JUDY - 7 assessed: 07/13/24 Source: Developed by Drs. Santy Lyles, Lupe Champion, Michael Gallegos and colleagues, with an educational katy from [employer]. Review of Systems Const Denies chills, Denies fatigue, Denies fever(s), Denies headache(s) and Denies weakness ENT Denies dizziness and Denies headache(s) Card Denies dyspnea Resp Denies cough, Denies dyspnea, Denies wheezing and Denies other (shortness of breath) Musc Denies numbness and Denies tingling Neuro Denies dizziness, Denies headache(s), Denies numbness, Denies tingling and Denies weakness Psych Denies anxiety and Denies depression Endo Denies fatigue Aller/Immun Denies wheezing Physical exam (Primary Care) Vital Signs: Last Vital Signs Temp 97.1 F 01/03/25 10:40 Pulse 62 01/03/25 10:40 Resp 12 01/03/25 10:40 BP 122/70 01/03/25 10:40 Pulse Ox 99 01/03/25 10:40 Oxygen Delivery Method Room Air 01/03/25 10:40 BMI result Body Mass Index 31.2 Tobacco/Smoking Status: Tobacco use Status Tobacco use date assessed 01/03/25 01/03/25 10:37 Patient Tobacco Use Status Never used Tobacco 01/03/25 10:35 e-Cigarette/Vaping Use Never Used 01/03/25 10:35 Thrive Assessment: Date of Thrive Assessment Date Thrive assessed 07/10/24 01/03/25 10:35 Currently or been in a relationship where the following occur: I choose not to answer Const General: well developed; No acute distress Nutritional Appearance: well nourished Orientation/consciousness: patient oriented x3 HENMT Head: Yes normocephalic and Yes atraumatic Eyes General: appearance normal, both eyes and all related structures Pupils: Equal, round and reactive pupils present EOM: EOMs intact bilaterally Resp Effort & Inspection: normal respiratory effort Neuro General: patient oriented x3 and gait normal Cranial nerves: Yes Equal, round and reactive pupils present Psych Affect: normal affect Coding Level of Care Code Est Pt Level 3 (75193) Diagnoses Hyperlipidemia E78.5 Assessment & Plan Assessment & Plan (1) Hyperlipidemia: Code(s): E78.5 - Hyperlipidemia, unspecified Category: Medical Plan: Ongoing and significantly high LDL cholesterol. Goal is less than 100 Start atorvastatin Will recheck lipids prior to next visit Orders: Orders Comprehensive [place]. Panel Fast Today E78.5 - Hyperlipidemia, unspecified, Z00.00 - Encounter for general adult medical examination without abnormal findings Lipid Panel Today E78.5 - Hyperlipidemia, unspecified, Z00.00 - Encounter for general adult medical examination without abnormal findings Medications: New atorvastatin (Lipitor) 40 mg PO BEDTIME 90 tabs 3RF 90 days
[2025-01-03 10:40] VITALS: BP 122/70; PULSE 62; RESP 12; TEMP 36.2; O2SAT 99; BMI 31.2
== END 2025-01-03 11:38 | disposition home or self-care (01) ==
LOC: HO.HMCFM 10:28
PROVIDERS: PCP Family Medicine; Visit Provider Family Medicine
DX: E78.5 Hyperlipidemia, unspecified (principal)

== ENCOUNTER 2025-04-25 10:58 | Day surgery (SDC) | payer OTHER, SELFPAY ==
--- NOTE | 2025-04-21 12:51 | HO.ANESPROP2 ---
Documented by User: Penelope Segura NP 04/21/25 12:53 HPI - Anesthesia Eval Consult details Narrative: 59yo F for Colonoscopy PMFSH Active Problems Active Problems: All Active Problems Adult general medical exam (Acute) External hemorrhoids (Acute) Hyperlipidemia (Acute) Screening for cervical cancer (Acute) Screening for colon cancer (Acute) Breast cancer screening by mammogram (Acute) Laboratory exam ordered as part of routine general medical examination (Acute) Raynauds phenomenon (Acute) Exposure to hepatitis C (Acute) Past Medical History Medical History (Updated 04/25/25 @ 11:51 by Priscilla Sims RN) Hyperlipidemia External hemorrhoids Family History Family History Brother Clotting disorder Social History Social History Housing: House Patient Tobacco Use Status: Never used Tobacco e-Cigarette/Vaping Use: Never Used Second Hand Smoke Exposure: No Use of substances other than those prescribed or required for medical reasons: No Advance Directives: No Advance Directives Information Provided: Yes service: No Current occupational status: unemployed Current occupational exposures/hazards: No Cognitive needs: No Hearing needs: No Vision needs: Yes Meds Allergies Allergy/AdvReac Type Severity Reaction Status Date / Time No Known Allergies Allergy Verified 04/25/25 11:47 Assessment and Plan Assessment Anesthesia Assessment: Chart Reviewed Documented by User: Alan Arteaga MD 04/25/25 15:06 PMFSH Past Medical History Medical History (Updated 04/25/25 @ 11:51 by Priscilla Sims RN) Hyperlipidemia External hemorrhoids Family History Family History Brother Clotting disorder Family history of problems with anesthesia: No Surgical History History of Problems with Anesthesia: No Social History Social History Housing: House Patient Tobacco Use Status: Never used Tobacco e-Cigarette/Vaping Use: Never Used Second Hand Smoke Exposure: No Use of substances other than those prescribed or required for medical reasons: No Advance Directives: No Advance Directives Information Provided: Yes service: No Current occupational status: unemployed Current occupational exposures/hazards: No Cognitive needs: No Hearing needs: No Vision needs: Yes Meds Allergies Allergy/AdvReac Type Severity Reaction Status Date / Time No Known Allergies Allergy Verified 04/25/25 11:47 Exam Airway Mallampati Class: II TM Dist: >3cm Neck ROM: Full Assessment and Plan Assessment Anesthesia Assessment: Anesthesia Plan Discussed Final Anesthetic Review Family History of Problems with Anesthesia: No History of Problems with Anesthesia: No NPO: Yes ASA Class: II Final Preanesthetic Review: No Changes in Pt Med Stat, Meds/Allgs Chart Reviewed, Consent Obtained/Reviewed and Anes Risks/Benef Reviewed Patient Risk: Low Procedure Risk: Low Anesthetic Plan Anesthetic Plan: MAC: Disposition: Standard PACU
[2025-04-21 14:31] VITALS: BMI 31.2
[2025-04-25 11:51] VITALS: BMI 28.8
[2025-04-25 11:54] VITALS: BP 121/85; PULSE 68; RESP 18; TEMP 36.4; O2SAT 99
[2025-04-25] MEDS: Lactated Ringers 1,000 ML 100 ML IVCONT (12:04)
--- NOTE | 2025-04-25 12:20 | MHC.SHP ---
Pre-Procedural Eval Section A - 24 Hr Update-Section A only Date of Service: 04/25/25 Section B - Complete if H&P > 30 days Chief Complaint: screening Details of Present Illness: External hemorrhoids Present Medications: see Short Stay Collaborative assessment Allergies: Allergies Allergy/AdvReac Type Severity Reaction Status Date / Time No Known Allergies Allergy Verified 04/25/25 11:47 Review of Systems Review of Systems Comment: Ten point ROS negative Exam Exam Comment: Gen appear: No acute distress HEENT: no icterus Chest: No overt resp distress Abd: soft, nontender, nondistended Psych: Stable affect, answering questions appropriately Neuro: A/Ox3 noted to move all extremities spontaneously Ext: no peripheral edema Plan Diagnosis/Plan: Unchanged I have reviewed the history and physical and performed a pertinent physical examination on my patient. No changes have occurred unless specified. Time Spent With Patient Time: Total time managing care of this patient today ____ minutes.
--- NOTE | 2025-04-25 14:29 | P.OPN-COLO_ITS ---
Colonoscopy Operative Note Operative Note Date of Service: 04/25/25 Narrative: Procedure: Colonoscopy Indication: Screening Endoscopist: Ramona Gerard MD Anesthesia Provider: Dr Alan Arteaga Anesthesia type: MAC Instrument: Olympus [id number]-[id number] Consent: Indication, risks vs benefits, and alternatives were discussed with the patient who gave written informed consent to proceed. EKG, pulse, pulse oximetry and blood pressure were monitored throughout the procedure. Please see anesthesia flowsheet. Procedure: The patient was brought to the procedure room and placed in the left lateral decubitus position. IV medications were administered by the anesthesia provider in attendance. A digital rectal exam was performed which was normal. A distal attachment cap was affixed to the tip of the colonoscope which was then inserted through the anus and advanced through the colon to the cecum at 75 cm ,and terminal ileum. Appendiceal orifice and ileocecal valve were identified. Mucosa was carefully examined under high definition white light as the instrument was slowly withdrawn in a retrograde panoramic fashion. Retroflexion was performed in rectum. The procedure was not difficult. There were no immediate obvious complications. The quality of the prep was BBPS: 2+3+3 = adequate Withdrawal time 14 minutes. Limitations: No limitations. Findings: Mucosa: Normal to cecum and terminal ileum. Protruding lesions: * 1 sessile polyp of size 5 mm in ascending colon. Cold snare polypectomy was performed. The polyp was completely removed and retrieved. * 1 pedunculated polyp of size 20 mm in sigmoid colon at 25 cm from anal orifice. Epi was injected in the base of the pedicle. Hot snare polypectomy was performed. The polyp was completely removed and retrieved. A [place] resolution 360 Endoclip was placed at the polypectomy site. * 1 sessile polyp of size 2 mm in rectum. Cold snare polypectomy was performed. The polyp was completely removed and retrieved. * Large internal hemorrhoids without stigmata of recent bleeding. Impression: 1. Normal colon and terminal ileum mucosa 2. Total of 3 polyps removed (epi, hot snare, endoclip) 3. Internal hemorrhoids Recommendations: - Follow path results. - Repeat colonoscopy in 3 years if the large sigmoid colon polyp is an adenoma.
[2025-04-25 14:35] VITALS: BP 98/59; PULSE 52; RESP 16; TEMP 36.1; O2SAT 100
[2025-04-25 14:50] VITALS: BP 110/69; PULSE 72; RESP 13; TEMP 36.6; O2SAT 97
== END 2025-04-25 15:13 | disposition home or self-care (01) ==
PROVIDERS: PCP Family Medicine; Visit Provider Internal Medicine
PROC: 0DJD8ZZ Inspection of Lower Intestinal Tract, Via Natural or Artificial Opening Endoscopic (ICD-10-PCS; CPT 45378; principal; 2025-04-25 13:30)
DX: Z12.11 Encounter for screening for malignant neoplasm of colon (principal); K64.4 Residual hemorrhoidal skin tags; K64.8 Other hemorrhoids; D12.7 Benign neoplasm of rectosigmoid junction; D12.2 Benign neoplasm of ascending colon; D12.5 Benign neoplasm of sigmoid colon
CPT/HCPCS: 45385; 45381; 88305; J0165; J2003; J2704

== ENCOUNTER → 2025-04-25 10:58 | Outpatient (BNV) | payer OTHER, SELFPAY | PROVIDERS: PCP Family Medicine; Visit Provider Internal Medicine | DX: Z12.11 Encounter for screening for malignant neoplasm of colon (principal); K63.5 Polyp of colon; K64.8 Other hemorrhoids | CPT/HCPCS: 45385 ==